=== PATIENT | male | born 1940 | race African-American/Black ===

== ENCOUNTER 2019-12-12 15:31 | Emergency (ER) | payer MEDICARE ==
[~2019-12-12 15:31] MED LIST: Sodium Chloride 0.9% 50 ML BAG ONE
[2019-12-12 16:40] LABS: Hemoglobin 12.5 g/dL (14.0-18.0); Mean Corpuscular HGB CONC 31.7 g/dL (32.0-36.0); Mean Corpuscular Hemoglobin 26.1 pg (27.0-31.0); Mean Corpuscular Volume 82.3 fL (78.0-98.0); Mean Platelet Volume 7.1 fL (7.4-10.4); Platelet Count 336 thou/uL (130-400); RBC Distribution Width 13.2 % (11.5-14.5); Red Blood Cell (RBC) Count 4.81 mill/uL (4.70-6.10)
[2019-12-12 16:41] LABS: Anisocytosis SLIGHT = 6-15 cells (100X) (0-5/hpf); Hypochromia SLIGHT = 6-15 cells (100X) (0-5/hpf); Lymphocytes 66 % (21-51); MDiff Complete? YES; Monocytes 3 % (0-10); Neutrophil 26 % (42-75); Platelet Morphology Comment Appears Adequate; Reactive Lymphocytes 5 % (0-10)
[2019-12-12 16:42] LABS: ALT (SGPT) 20 U/L (8-55); AST (SGOT) 95 U/L (5-34); Albumin 3.7 g/dL (3.4-4.8); Alkaline Phosphatase 86 U/L (40-110); Anion Gap 17 mmol/L (10-20); BUN (Urea Nitrogen) 9 mg/dL (8.4-25.7); Bilirubin, Total 0.5 mg/dL (0.2-1.2); Calc. Creatinine Clearance 0 mL/min (70-130); Calcium 9.1 mg/dL (7.8-10.44); Carbon Dioxide 21 mmol/L (23-31); Chloride 105 mmol/L (98-107); Estimated GFR-MDRD Greater than 90; Globulin 3.5 g/dL (2.4-3.5); Glucose 95 mg/dL (83-110); Potassium 3.8 mmol/L (3.5-5.1); Protein, Total 7.2 g/dL (5.8-8.1); Sodium 139 mmol/L (136-145)
[2019-12-12 16:48] LABS: Bilirubin Negative (Negative); Blood, Urine Trace (Negative); Clarity Cloudy (Clear); Glucose, Urine (Dipstick) Negative (Negative); Leukocyte Moderate (Negative); Nitrite Positive (Negative); Protein, Urine (Dipstick) Trace mg/dL (Neg-Trace); RBC/HPF 0-3 HPF (0-3); Squamous Epithelial 0-3 HPF (0-3); WBC/HPF Greater Than 50 HPF (0-3)
[2019-12-12 16:49] LABS: Bacteria/HPF 4+ HPF (None Seen)
[2019-12-12] MEDS ORDERED: cefTRIAXone\\ROCEPHIN 1 GM VIAL ONE (16:53)
== END 2019-12-12 17:20 | disposition home or self-care (01) ==
LOC: MADERS 15:31
DX: N39.0 Urinary tract infection, site not specified (principal); E11.9 Type 2 diabetes mellitus without complications; E78.00 Pure hypercholesterolemia, unspecified; E78.5 Hyperlipidemia, unspecified; I10 Essential (primary) hypertension
CPT/HCPCS: 80053; 81003; 81015; 83735; 84443; 84484; 85025; 93005; 96374; J0696

== ENCOUNTER 2020-08-04 17:59 | Emergency (ER) | payer MEDICARE ==
[2020-08-04] MEDS ORDERED: Lidocaine 1% w/Epinephrine 1:100K 20 ML VIAL ONE (18:34)
[2020-08-04] MEDS ORDERED: Sodium Chloride Irrig Solution 250 ML ONE (19:03)
--- NOTE | 2020-08-04 19:07 | CT ---
CT BRAIN 08/04/20 PROVIDED CLINICAL HISTORY: Fall with head trauma. FINDINGS: Comparison 07/29/20. The ventricular system appears unchanged in size and morphology. There is no evidence for intracrania l hemorrhage or mass effect. Conspicuous chronic microvascular ischemic change are seen involving the cerebral white matter. The extracranial soft tissues and osseous structures demonstrate no acute abn ormality. IMPRESSION: No evidence for intracranial hemorrhage or mass effect. POS: JANELLE
== END 2020-08-04 19:55 | disposition home or self-care (01) ==
LOC: MADERS 17:59
DX: S01.81XA Laceration without foreign body of other part of head, initial encounter (principal); E78.5 Hyperlipidemia, unspecified; E78.00 Pure hypercholesterolemia, unspecified; F03.90 Unspecified dementia, unspecified severity, without behavioral disturbance, psychotic disturbance, mood disturbance, and anxiety; I10 Essential (primary) hypertension; F32.9 Major depressive disorder, single episode, unspecified; Z79.899 Other long term (current) drug therapy; W01.198A Fall on same level from slipping, tripping and stumbling with subsequent striking against other object, initial encounter
CPT/HCPCS: 70450; 93005

== ENCOUNTER 2020-09-08 18:39 | Emergency (ER) | payer MEDICARE ==
[2020-09-08] MEDS ORDERED: Sodium Chloride 0.9% 1,000 ML ONE (19:28)
--- NOTE | 2020-09-08 19:36 | RAD ---
Chest one view HISTORY: Dyspnea. Altered mental status. COMPARISON: 07/29/2020. FINDINGS: Cardiac silhouette and pulmonary vasculature are unremarkable. Mediastinum is midline. Calc ification of the aorta. No lobar consolidation or evidence of pneumothorax. 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 Prominent degenerative changes of shoulders. IMPRESSION : No acute abnormalities are demonstrated.
[2020-09-08 19:48] LABS: ALT (SGPT) 13 U/L (8-55); AST (SGOT) 53 U/L (5-34); Albumin 3.6 g/dL (3.4-4.8); Alkaline Phosphatase 84 U/L (40-110); Anion Gap 16 mmol/L (10-20); BUN (Urea Nitrogen) 8 mg/dL (8.4-25.7); Bilirubin, Total 0.9 mg/dL (0.2-1.2); CK (CPK) 47 U/L (30-200); Calc. Creatinine Clearance 0 mL/min (70-130); Calcium 9.1 mg/dL (7.8-10.44); Carbon Dioxide 22 mmol/L (23-31); Chloride 105 mmol/L (98-107); Globulin 3.1 g/dL (2.4-3.5); Glucose 107 mg/dL (83-110); Protein, Total 6.7 g/dL (5.8-8.1); Sodium 139 mmol/L (136-145)
[2020-09-08 19:51] LABS: Hemoglobin 12.4 g/dL (14.0-18.0); Lymphocytes 24 % (21-51); MDiff Complete? YES; Mean Corpuscular HGB CONC 31.7 g/dL (32.0-36.0); Mean Corpuscular Hemoglobin 27.2 pg (27.0-31.0); Mean Corpuscular Volume 85.7 fL (78.0-98.0); Mean Platelet Volume 8.2 fL (7.4-10.4); Neutrophil 27 % (42-75); Platelet Count 256 thou/uL (130-400); Platelet Morphology Comment Appears Adequate; RBC Distribution Width 14.7 % (11.5-14.5); Reactive Lymphocytes 49 % (0-10); Red Blood Cell (RBC) Count 4.54 mill/uL (4.70-6.10); Reflex for Review?? NO; White Blood Cell (WBC) Count 11.7 thou/uL (4.8-10.8)
== END 2020-09-08 21:06 | disposition home or self-care (01) ==
LOC: MADERS 18:39
DX: F03.90 Unspecified dementia, unspecified severity, without behavioral disturbance, psychotic disturbance, mood disturbance, and anxiety (principal); R26.9 Unspecified abnormalities of gait and mobility; R53.1 Weakness; E78.5 Hyperlipidemia, unspecified; E78.00 Pure hypercholesterolemia, unspecified; I10 Essential (primary) hypertension; K21.9 Gastro-esophageal reflux disease without esophagitis; Z79.899 Other long term (current) drug therapy; W19.XXXA Unspecified fall, initial encounter
CPT/HCPCS: 71045; 80053; 82550; 84484; 85025; J7050

== ENCOUNTER 2021-01-18 03:41 | Emergency (ER) | payer MEDICARE ==
[2021-01-18 04:10] LABS: Mean Corpuscular HGB CONC 30.4 g/dL (32.0-36.0); Mean Corpuscular Hemoglobin 26.1 pg (27.0-31.0); Mean Platelet Volume 8.7 fL (7.4-10.4); Platelet Count 262 thou/uL (130-400); RBC Distribution Width 14.4 % (11.5-14.5); Red Blood Cell (RBC) Count 5.34 mill/uL (4.70-6.10); White Blood Cell (WBC) Count 18.1 thou/uL (4.8-10.8)
[2021-01-18 04:18] LABS: Hypersemented Neutrophil MODERATE; Lymphocytes 73 % (21-51); MDiff Complete? YES; Monocytes 4 % (0-10); Neutrophil 23 % (42-75); Platelet Morphology Comment Appears Adequate; RBC Morphology Normal
[2021-01-18 04:25] LABS: AST (SGOT) 59 U/L (5-34); Albumin 3.6 g/dL (3.4-4.8); Alkaline Phosphatase 99 U/L (40-110); Anion Gap 22 mmol/L (10-20); BUN (Urea Nitrogen) 9 mg/dL (8.4-25.7); Bilirubin, Total 1.7 mg/dL (0.2-1.2); Calc. Creatinine Clearance 0 mL/min (70-130); Calcium 9.1 mg/dL (7.8-10.44); Carbon Dioxide 18 mmol/L (23-31); Chloride 104 mmol/L (98-107); Globulin 3.5 g/dL (2.4-3.5); Glucose 90 mg/dL (83-110); Potassium 3.5 mmol/L (3.5-5.1); Protein, Total 7.1 g/dL (5.8-8.1); Sodium 140 mmol/L (136-145)
[2021-01-18 04:26] LABS: CKMB 0.8 ng/mL (0-6.6)
[2021-01-18 04:42] LABS: ALT (SGPT) 22 U/L (8-55); CK (CPK) 55 U/L (30-200)
[2021-01-18 04:59] LABS: Bilirubin Negative (Negative); Blood, Urine Negative (Negative); Clarity Clear (Clear); Glucose, Urine (Dipstick) Negative (Negative); Ketone, Urine Trace mg/dL (Negative); Leukocyte Negative (Negative); Nitrite Negative (Negative); Protein, Urine (Dipstick) Negative (Neg-Trace); pH, Urine 8.5 (5.0-9.0)
[2021-01-18 05:13] LABS: Base Excess-Venous -3.1 mmol/L (-2.0 to 3.0); Bicarbonate (HCO3v) 19.2 mmol/L (22.0-28.0); CO2 Tension (PvCO2) 27.3 mmHg (42.0-51.0); Calcium, Ionized 1.14 mmol/L (1.15-1.33); Chloride 103 mmol/L (98-107); Hemoglobin - Calc 16.1 g/dL (14.0-18.0); Potassium 3.5 mmol/L (3.5-5.1); Sodium 142 mmol/L (138-145); vO2 Saturation-calc 61.7 % (60.0-85.0)
[2021-01-18 05:38] LABS: SARS-CoV-2 NAA Rapid Test Not Detected (NotDetected)
[2021-01-18] MEDS ORDERED: Erythromycin Base 0.5% Ophth Oint 3.5 gm Tube ONE (06:53)
[2021-01-18] MEDS ORDERED: predniSONE 20 MG TAB ONE (06:53)
== END 2021-01-18 07:10 | disposition home or self-care (01) ==
LOC: MADERS 03:41
DX: B34.9 Viral infection, unspecified (principal); H10.9 Unspecified conjunctivitis; E78.5 Hyperlipidemia, unspecified; E78.00 Pure hypercholesterolemia, unspecified; I10 Essential (primary) hypertension; K21.9 Gastro-esophageal reflux disease without esophagitis; Z87.891 Personal history of nicotine dependence; Z79.899 Other long term (current) drug therapy
CPT/HCPCS: 0240U; 36415; 71045; 80053; 81003; 82330; 82550; 82553; 82803; 83880; 84484; 85025; 93005; J7512